=== PATIENT | male | born 1955 | race Two or more races ===

== ENCOUNTER 2021-02-17 10:45 | Day surgery (SDC) | payer OTHER ==
[~2021-02-17 10:45] MED LIST: CLONAZEPAM2 MG PO; DULOXE PO; METFORMIN HCL500 MG; PERPHENAZINE8 MG PO; SIMVAST PO; SIMVASTA PO; VITAMIN B12 PO; [UNRECOGNIZED DRUG - OTHER]
[2021-02-17] MEDS ORDERED: ULTRAM50 MG PO (13:24)
[2021-02-17] MEDS ORDERED: TYLENOL ARTHRI650 MG PO (13:24)
[2021-02-17] MEDS ORDERED: MIRALAX17 GM PO (13:24)
== END 2021-02-17 18:45 | disposition home or self-care (01) ==
LOC: CIR.AMB 10:45
PROVIDERS: ATTEND Surgery
DX: K40.30 Unilateral inguinal hernia, with obstruction, without gangrene, not specified as recurrent (principal); Z20.822 Contact with and (suspected) exposure to COVID-19

== ENCOUNTER 2021-05-26 10:14 | Day surgery (SDC) | payer OTHER ==
[~2021-05-26 10:14] MED LIST changes: +MIRALAX17 GM PO; +TYLENOL ARTHRI650 MG PO; +ULTRAM50 MG PO
== END 2021-05-26 15:20 | disposition home or self-care (01) ==
LOC: CIR.AMB 10:14
PROVIDERS: ATTEND Surgery
DX: K40.30 Unilateral inguinal hernia, with obstruction, without gangrene, not specified as recurrent (principal)